=== PATIENT | female | born 1940 | race Caucasian/White ===

== ENCOUNTER 2023-04-28 14:55 | Outpatient (REF) | payer MEDICARE, MEDICAID, SELFPAY ==
[2023-04-28 16:20] LABS: Calcium 8.5 mg/dL (8.5-10.1); Carbon Dioxide 36.9 mmol/L (21.0-32.0); Chloride 105 mmol/L (98-107); Estimated GFR (African America 55 (>=60); Estimated GFR (Non-African Ame 45 (>=60); Glucose 57 mg/dL (74-106); Potassium 4.9 mmol/L (3.5-5.1); Sodium 145 mmol/L (136-145)
== END 2023-04-28 14:56 | disposition home or self-care (01) ==
LOC: LAB 14:55
DX: R06.02 Shortness of breath (principal)
CPT/HCPCS: 36415; 80048; 85378